=== PATIENT | male | born 1955 | race Caucasian/White ===

== ENCOUNTER 2016-07-30 09:53 | Emergency (ER) | payer BC ==
[2016-07-30 10:15] VITALS: BP 133/73
--- NOTE | 2016-07-30 10:49 | UC ---
Throat Pain/Nasal Rodney HPI - HPI Summary HPI Summary: Nasal congestion and scratchy throat starting 6 days ago. "I get this every year and it always drains down into my bronchials." Denies fever, wheezing, or focal pain. Reports hx of pneumonia x 4 in distant past, no hospitalization, no COPD or other lung disease. - History of Current Complaint Chief Complaint: UCRespiratory Stated Complaint: CONGESTION Time Seen by Provider: 07/30/16 10:20 Hx Obtained From: Patient Onset/Duration: Gradual Onset, Lasting Days Severity: Moderate Cough: Other: - mild now Associated Signs & Symptoms: Positive: Nasal Discharge. Negative: Fever, Vomiting, Rash - Allergies/Home Medications Allergies/Adverse Reactions: Allergies Allergy/AdvReac Type Severity Reaction Status Date / Time No Known Allergies Allergy Verified 07/30/16 10:15 Home Medications: Home Medications Multiple Vitamins W/ Minerals [Airborne] 1 naveen PO BID 07/30/16 [History Confirmed 07/30/16] [id number] [Nyquil Severe Cold/Flu 5-6.25-10-325 mg/15Ml] 2 tab PO BEDTIME PRN 07/30/16 [History Confirmed 07/30/16] Prescribed Sleep Med 1 tab PO QPM PRN 07/30/16 [History Confirmed 07/30/16] Pseudoephedrine HCL ER TAB* [Sudafed 12 Hour*] 120 mg PO BID 07/30/16 [History Confirmed 07/30/16] guaiFENesin ER TAB [Mucinex*] 600 mg PO BID PRN 07/30/16 [History Confirmed ] PMH/Surg Hx/FS Hx/Imm Hx Previously Healthy: Yes - Surgical History Surgical History: None - Family History Known Family History: Positive: Hypertension - Social History Occupation: Employed Full-time Lives: With Family Alcohol Use: Occasionally Substance Use Type: None Smoking Status (MU): Never Smoked Tobacco Review of Systems Constitutional: Negative Skin: Negative Eyes: Negative ENT: Sore Throat, Nasal Discharge Respiratory: Cough Cardiovascular: Negative Gastrointestinal: Negative Genitourinary: Negative Motor: Negative Neurovascular: Negative Musculoskeletal: Negative Neurological: Negative Psychological: Negative All Other Systems Reviewed And Are Negative: Yes Physical Exam Triage Information Reviewed: Yes Appearance: Well-Appearing, No Pain Distress, Well-Nourished Vital Signs: Initial Vital Signs Temp 98.1 F 07/30/16 10:10 Pulse 91 07/30/16 10:10 Resp 24 07/30/16 10:10 BP 133/73 07/30/16 10:10 Pulse Ox 98 07/30/16 10:10 Vital Signs Reviewed: Yes Eye Exam: Normal Eyes: Positive: Conjunctiva Clear ENT: Positive: Hearing grossly normal, Pharynx normal, Nasal congestion, TMs normal - R TM normal, TM red - L TM slightly red. Negative: TM bulging, TM dull Dental Exam: Normal Neck exam: Normal Neck: Positive: Supple, Nontender, No Lymphadenopathy Respiratory Exam: Normal Respiratory: Positive: Chest non-tender, Lungs clear, Normal breath sounds, No respiratory distress, No accessory muscle use Cardiovascular Exam: Normal Cardiovascular: Positive: RRR, No Murmur Musculoskeletal Exam: Normal Neurological Exam: Normal Psychological Exam: Normal Skin Exam: Normal Throat Pain/Nasal Course/Dx - Course Course Of Treatment: discussed s/sx of bacterial complications, encouraged pt to call or return if he has worrisome sx. - Differential Dx/Diagnosis Provider Diagnoses: URI, likely viral Discharge - Discharge Plan Condition: Stable Disposition: HOME Patient Education Materials: Upper Respiratory Infection (ED) Additional Instructions: We used to think antibiotics were necessary to treat bronchitis, but studies have shown that respiratory viruses cause the disease in the vast majority of cases. Like head colds, most cases of bronchitis get better without antibiotics. We may prescribe antibiotics if we believe bacteria are damaging your airways, or if there's high risk the bronchitis will worsen into pneumonia (such as for individuals with emphysema or other lung disease). Increase your fluid intake. A cool mist humidifier may make your lungs more comfortable. An expectorant (cough medicine that loosens phlegm) can help. If you smoke, STOP!!! Recovery from bronchitis can be somewhat slow, but you should not have any significant worsening or new fevers. As long as you can breathe easily and you continue to have steady improvement, it is not important how many days it takes you to get better. Call or return if you develop increasing fever, shortness of breath, chest pain , bloody sputum, or otherwise worsen. If you have not improved at all after several days, contact your primary care physician or return here.
== END 2016-07-30 10:51 | disposition home or self-care (01) ==
LOC: UCCORT 09:53
DX: J06.9 Acute upper respiratory infection, unspecified (principal); Z87.01 Personal history of pneumonia (recurrent)
CPT/HCPCS: 99201; G0463